=== PATIENT | male | born 2005 | race Caucasian/White ===

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

== ENCOUNTER 2023-01-20 15:25 | Outpatient (CLI) | payer OTHER, MEDICAID, SELFPAY | END 2023-01-20 15:26 | disposition home or self-care (01) | LOC: AMB 01-28 09:35 | PROVIDERS: PCP Family Medicine; Visit Provider Emergency Medicine Emergency Medical Services | DX: H93.13 Tinnitus, bilateral (principal) | CPT/HCPCS: A0425; A0427 ==

== ENCOUNTER 2023-01-20 15:50 | Emergency (ER) | payer OTHER, MEDICAID, SELFPAY ==
[2023-01-20 15:54] VITALS: BP 125/83; PULSE 89; RESP 16; TEMP 36.6; O2SAT 96; BMI 20.4
[2023-01-20 16:00] VITALS: BP 127/88; PULSE 86; O2SAT 97
[2023-01-20 16:15] VITALS: BP 129/88; PULSE 78; O2SAT 97
--- NOTE | 2023-01-20 16:20 | ED.GENADULT ---
HPI - General Adult General Chief complaint: Unspecified Complaint, Adult Stated complaint: Heat exposure Time Seen by Provider: 01/20/23 15:51 History of Present Illness HPI narrative: This 17-year-old male comes in with his mother reporting an episode of lightheadedness with some tinnitus and muscle cramping. He was out in extremely hot day with high humidity and was on roller blades for rather short time. He states that he typically goes out to exercise this way. Today he began to feel these symptoms and comes in by ambulance. An IV has been established and he did receive a half a L of normal saline. He arrives here with normal vital signs and states that he is feeling better. Prior to this he has been in good health. He does not smoke or vape. He does state that he has a chronic cough and is taking Zyrtec. Related Data Previous Rx's Medication Instructions Recorded albuterol sulfate 90 mcg/actuation 2 puff inhalation Q6H PRN 01/03/23 aerosol inhaler shortness of breath or wheezing #8.5 grams cetirizine 10 mg tablet (Zyrtec) 10 mg PO QDAY PRN allergy symptoms 01/03/23 #90 tabs Allergies Allergy/AdvReac Type Severity Reaction Status Date / Time azithromycin Allergy Intermediate Chest Pain Verified 01/20/23 16:00 trazodone Allergy Unknown penile Verified 01/20/23 16:00 burning Erythromycin Allergy Intermediate Hives Uncoded 01/03/23 15:47 Review of Systems Status of ROS: Reports: 10 or more systems reviewed and unremarkable except as noted in History and below Narrative: Constitutional: No fevers, no weight gain or loss. Eyes: No discharge. No vision changes. HENT: No congestion, no sore throat, no ear pain. Cardiovascular: No chest pain, no palpitations. Respiratory: No shortness of breath, no wheezes, no cough. Gastrointestinal: No abdominal pain, no vomiting, no diarrhea. Genitourinary: No dysuria, no hematuria. Musculoskeletal: Normal range of motion. Skin: No rashes, no pruritis. Neurological: No dizziness, weakness, sensory change, speech change. Endo/Heme/Allergies: No bruising or bleeding. No polydipsia. Pysch: no suicidality, no anxiety, no insomnia. All other systems reviewed and are negative. PFSH PFSH Medical History Back pain Heat exhaustion Premature infant of unknown weight (12/21/12) Surgical History History of appendectomy Social History Smoking Status: Never smoker Do you use any of these nicotine containing products: None Second hand tobacco smoke exposure: No How often do you have a drink containing alcohol: never How often do you have six or more drinks on one occasion: Never AUDIT-C Alcohol total score: 0 Non-prescribed substance use: denies use Little interest or pleasure in doing things: not at all Feeling down, depressed, or hopeless: not at all Exam Narrative: Exam Narrative: Constitutional: Well-developed, well-nourished, no acute distress. HEENT: Normocephalic, atraumatic. Neck: Normal range of motion. Nontender. Supple. Heart: Regular. No murmurs. Normal rate. Intact distal pulses. Lungs: Clear to auscultation. No chest discomfort. No wheezes, rhonchi, or rales. Abdomen: Normal bowel sounds. Nontender. No rebound tenderness. Genitalia: Deferred. Back: No midline tenderness. Normal range of motion. Extremities: Normal range of motion. No injury. Skin: Intact. No rash. Warm. No erythema or pallor. Neurologic: No altered sensation. No weakness. Alert and oriented. Psychiatric: No suicidality. No anxiety or depression. No insomnia. Nursing notes and vitals signs are reviewed. Const: Vital Signs, click to edit/add: Vital Signs - 24 hr 01/20/23 15:54 01/20/23 16:00 01/20/23 16:15 Temperature 97.8 F Pulse Rate [Left P ulse Oximeter] 89 86 78 Respiratory Rate 16 Blood Pressure [Ri ght Upper Arm] 125/83 127/88 129/88 Pulse Oximetry 96 97 97 Oxygen Delivery Me thod Room Air 01/20/23 17:00 Temperature Pulse Rate [Left P ulse Oximeter] 82 Respiratory Rate Blood Pressure [Ri ght Upper Arm] 132/82 Pulse Oximetry 95 Oxygen Delivery Me thod Course Vital Signs Vital signs: Initial Vital Signs Temperature 97.8 F 01/20/23 15:54 Temperature Source Temporal Artery Scan 01/20/23 15:54 Pulse Rate 89 01/20/23 15:54 Respiratory Rate 16 01/20/23 15:54 Blood Pressure 125/83 01/20/23 15:54 Blood Pressure Mean 97 01/20/23 15:54 Blood Pressure Position Semi-Fowlers 01/20/23 15:54 Pulse Oximetry 96 01/20/23 15:54 Oxygen Delivery Method Room Air 01/20/23 15:54 Vital Signs Temperature 97.8 F 01/20/23 15:54 Pulse Rate 89 01/20/23 15:54 Respiratory Rate 16 01/20/23 15:54 Blood Pressure 125/83 01/20/23 15:54 Pulse Oximetry 96 01/20/23 15:54 Oxygen Delivery Method Room Air 01/20/23 15:54 Temperature 97.8 F 01/20/23 15:54 Pulse Rate 82 01/20/23 17:00 Respiratory Rate 16 01/20/23 15:54 Blood Pressure 132/82 01/20/23 17:00 Pulse Oximetry 95 01/20/23 17:00 Oxygen Delivery Method Room Air 01/20/23 15:54 Medical Decision Making MDM Narrative Medical decision making narrative: This patient comes in by ambulance because of getting overheated when outside rollerblading in a very hot and humid day. By the time he arrives here his vital signs are back to normal and he states that he is feeling normal. He did receive 500 mL of normal saline prior to arrival and another L of normal saline here. Lab results returned with normal findings. His vital signs have remained normal also. At the time of discharge the patient's mother states that he has some mental health issues and has been calling 911 multiple times. She states that he has called about 20 5 times and the police are now stating that any further calls that are frivolous will incur a charge to his mother who has custody of him. The patient is seeing a therapist and has seen a psychiatrist. He is not currently on any psychotropic medications. He denies any intent to harm himself or others. I did discuss the role of a mental health assessment and in a process of shared decision making this was declined. We did discuss strategies in options going forward and I stated that the emergency department is always open and can review these plans if things change. Lab Data Labs: Lab Results 01/20/23 Range/Units 16:30 WBC 6.39 (4.50-11.00) K/uL RBC 4.92 (4.30-5.90) m/uL Hgb 14.8 (13.5-17.5) gm/dL Hct 42.6 (37.0-53.0) % MCV 87 (80-100) fL MCH 30 (26-34) pg MCHC 35 (32-36) gm/dL RDW Coeff of Mimi 12.5 (11.5-15.5) % Plt Count 238 (140-440) K/uL Neut % (Auto) 61.0 (42.0-72.0) % Lymph % (Auto) 26.9 (20-44) % [place] % (Auto) 8.0 (0.0-11.0) % Eos % (Auto) 3.0 (0.0-7.0) % Baso % (Auto) 1.1 (0.0-3.0) % Neut # (Auto) 3.90 (1.7-7.0) K/uL Lymph # (Auto) 1.72 (0.90-2.90) K/uL [place] # (Auto) 0.50 (0.00-0.90) K/UL Eos # (Auto) 0.19 (0.00-0.50) K/uL Baso # (Auto) 0.07 (0.00-0.30) K/uL Abs Immat Gran (auto) 0.00 (0.00-0.30) K/uL Imm/Tot Granulo (auto) 0.0 % Sodium 136 (135-149) mmol/L Potassium 3.9 (3.6-5.1) mmol/L Chloride 104 (96-114) mmol/L Carbon Dioxide 25 (20-32) mmol/L BUN 15 (5-24) mg/dL Creatinine 1.0 (0.6-1.2) mg/dL Estimated Creat Clear 99.10 Estimated GFR 111 ml/min Glucose 89 (60-115) mg/dL Calcium 8.7 (8.7-10.8) mg/dL Discharge Plan Discharge Clinical Impression: Fluid volume depletion Patient Disposition: Home w/ Parent or Adult Condition: Improved Additional Instructions: Continue current plans. Take plenty of food and drink. Follow-up with therapist and MD as needed. Return if worsening. Prescriptions: No Action albuterol sulfate 90 mcg/actuation HFA aerosol inhaler 2 puff inhalation Q6H PRN (Reason: shortness of breath or wheezing) Qty: 8.5 2RF cetirizine [Zyrtec] 10 mg tablet 10 mg PO QDAY PRN (Reason: allergy symptoms) Qty: 90 1RF Follow Up/Referrals: Robin Pagan MD [Primary Care Provider] - Stand Alone Forms: [employer] Info Instructions
[2023-01-20] MEDS: 0.9 % SODIUM CHLORIDE 1000 ml 1,000 ML IV (16:27)
[2023-01-20 16:39] LABS: Basophils Absolute Auto 0.07 K/uL (0.00-0.30); Basophils Percent Auto 1.1 % (0.0-3.0); Eosinophils Absolute Auto 0.19 K/uL (0.00-0.50); Hematocrit 42.6 % (37.0-53.0); Hemoglobin* 14.8 gm/dL (13.5-17.5); Lymphocytes Absolute Auto 1.72 K/uL (0.90-2.90); Lymphocytes Percent Auto 26.9 % (20-44); Mean Corpuscular HGB Conc 35 gm/dL (32-36); Mean Corpuscular Hemoglobin 30 pg (26-34); Mean Corpuscular Volume 87 fL (80-100); Platelet Count* 238 K/uL (140-440); RDW Coefficient of Variation % 12.5 % (11.5-15.5); Red Blood Count 4.92 m/uL (4.30-5.90); White Blood Count* 6.39 K/uL (4.50-11.00)
[2023-01-20 16:48] LABS: Slide Review Reflex No
[2023-01-20 16:51] LABS: Chloride* 104 mmol/L (96-114); Potassium* 3.9 mmol/L (3.6-5.1); Sodium* 136 mmol/L (135-149)
[2023-01-20 16:54] LABS: Blood Urea Nitrogen* 15 mg/dL (5-24); Calcium* 8.7 mg/dL (8.7-10.8); Carbon Dioxide* 25 mmol/L (20-32); Estimated Glomerular Filt Rate 111 ml/min; Glucose* 89 mg/dL (60-115)
[2023-01-20 17:00] VITALS: BP 132/82; PULSE 82; O2SAT 95
--- NOTE | 2023-01-20 17:33 | ED.NURSE ---
did eat veggie burger and mac and cheese. awaiting ems at ~1800.
== END 2023-01-20 17:44 | disposition home or self-care (01) ==
PROVIDERS: Emergency Provider Emergency Medicine Emergency Medical Services; PCP Family Medicine
DX: E86.9 Volume depletion, unspecified (principal); X30.XXXA Exposure to excessive natural heat, initial encounter; Y93.51 Activity, roller skating (inline) and skateboarding
CPT/HCPCS: 36415; 80048; 85025; 99283; 99284; J7030

== ENCOUNTER 2024-02-28 12:58 | Outpatient (CLI) | payer MEDICAID, SELFPAY ==
--- OUTSIDE RECORDS SUMMARY | 2024-02-28 13:01 | XMS_ITS | Clinical Summary ---
Author Organization [facility] Address [place], [place] [facility] Care Team Providers Care Bar Useful Or Busser Name Role Phone Pcp, No Primary Care Provider Unavailabl e Allergies Active Allergy Reactions Criticality Noted Date Comments Erythromycin 03/31/2007 Medications Medication Sig Dispensed Refills Start Date End Date Status clonazePAM (KLONOPIN) 0.5 mg tabletIndications:Gen eralized anxiety disorder,Autism spectrum disorder Take 1.5 Tablets (0.75 mg) by mouth at bedtime. 45 Tablet 08/01/2023 Active prazosin (MINIPRESS) 1 mg capsuleIndications:Ni tammy Take 1 Capsule (1 mg) by mouth at bedtime. 30 Capsule 08/01/2023 Active docusate (COLACE) 100 mg capsuleIndications:Co nstipation, unspecified constipation type Take 1 Capsule (100 mg) by mouth 2 times daily if needed for Constipation. 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 Generalized anxiety disorder 06/27/2023 Allergic rhinitis, cause unspecified 03/20/2010 Immunizations Name Administration Dates Next Due DTaP 11/12/2004 [id number] (Pediarix) 2003,2003,1 07/02/2002 DTaP-IPV (Kinrix) 02/10/2009 HIB PRP-OMP (PedvaxHIB) 11/12/2004,2003, HPV 9 (Gardasil 9) 02/11/2017,02/11/2016 Hep A, Ped/adol, 3 Dose 03/19/2011 Hepatitis A (Peds) 02/10/2009,03/31/2007 MENINGOCOCCAL VACCINE (MENQU ADFI 0.5ML) 2YO+ POLYSACCHARIDE PF 01/07/2022 MMR 02/10/2009,03/03/2004 Meningococcal B 02/25/2023 Meningococcal Vaccine (Menveo) 02/11/2016 Pneumococcal conj 7-Valent (Prevnar 7) 0 11/12/2004,2003,2003,05/02 Tdap 02/11/2016 Varicella Vaccine 02/10/2009,03/03/2004 Family History Medical History Relation Name Comments Heart Disease Maternal Grandmother Hyperlipidemia Maternal Grandmother Heart Disease Paternal Grandfather Hyperlipidemia Paternal Grandfather Asthma No Family History Cancer-colon No Family History Diabetes No Family History Relation Name Status Comments Maternal Grandmother Paternal Grandfather Social History Tobacco Use Types Packs/Day Years Used Date Smoking Tobacco: Never Smokeless Tobacco: Never Tobacco Cessation:Counseling Given: Yes Alcohol Use Standard Drinks/Week Comments No 0 (1 standard drink = 0.6 oz pur e alcohol) PHQ-2 Answer Date Recorded PHQ-2 TOTAL SCORE 2 08/15/2023 Social Connections Answer Date Recorded Frequency of Communication with Friends and Fami ly 4 06/26/2023 Alcohol Use Answer Date Recorded How often do you have a drink containing alcohol ? 0 06/28/2023 How many drinks containing a lcohol do you have on a typical day when you are drinking? 0 06/28/2023 How often do you have five or more drinks on one occasion? 0 06/28/2023 Financial Resource Strain Answer Date R ecorded Difficulty of Paying Living Expenses 2 06/26/2023 Difficulty of Paying Living Expenses 1 06/26/2023 Food Insecurity Answer Date Recorded Worried About Running Out of Food in the Last Ye ar 1 06/26/2023 Transportation Needs Answer Date Record ed Lack of Transportation (Medical) 2 06/26/2023 Housing Stability Answer Date Recorded Unable to Pay for Housing in the Last Year 2 06/26/2023 Sex and Gender Information Value Date Recorded Sex Assigned at Not on file Gender Identity Not on file Sexual Orientation Not on file Obstetrics History Last Filed Vital Signs Vital Sign Reading Time Taken Comments Blood Pressure 111/63 08/03/2023 6:09 AM FRIT MIXER AND BURNER Pulse 93 08/03/2023 6:09 AM [employer] BURNER Temperature 37 ??C (98.6 ??F) 08/03/2023 6:09 AM FRIT M[employer]ER AND BURNER Respiratory Rate 18 08/03/2023 6:09 AM FRIT M[employer]ER AND BURNER Oxygen Saturation 96% 08/03/2023 6:09 AM [employer]ER AND BURNER Inhaled Oxygen Concentration - - Weight 57.3 kg (126 lb 6.4 oz) 08/01/2023 6:26 A M [employer] M[employer] BURNER Height 170.2 cm (5' 7) 06/27/2023 6:00 AM FRIT M[employer]ER [employer] BURNER Body Mass Index 19.41 06/27/2023 6:00 AM [employer] BURNER Plan of Treatment Health Maintenance Due Date Last Done Comments Well Child Check for age 3-20 03/20/2011 03/20/2010, 02/10/2009, 03/31/2007 HIV for age 15-65 2018 BMI (ht and wt on same day) for age 18+ 2021 Hepatitis C screening for age 18-79 2021 COVID-19 vaccine series ( season) 2024 Influenza for age 9-49 02/26/2024 Depression screening for age 12+ 08/16/2024 08/16/2023, 08/15/2023, 06/24/2023 Tetanus booster 02/10/2026 02/11/2016 Pneumococcal series for age 6-64 Aged Out 11/12/2004, 2003, 2003, Additional history exists No longer eligible based on patient's age to complete this topic Tdap Completed 02/11/2016 HPV series for age 9-26 Completed 02/11/2017, 02/10 Meningococcal series for age 11-21 Completed 01/07/2022, 02/11/2016 Advance Directives * Full Code (Latest Code Status on File) Date Activated Date Inactivated Comments 06/27/2023 9:51 AM 08/03/2023 1:14 PM Question Answer Comments Code Status Discussion: Reviewed Preferences * Full Code Date Activated Date Inactivated Comments 06/26/2023 11:40 PM 06/27/2023 9:51 AM Question Answer Comments Code Status Discussion: Unable to Assess Preferences, Provider to review later Care Teams Bar Useful Or Busser Relationship Specialty Start Date End Date Pcp, No . PCP - General 11/21/18
--- OUTSIDE RECORDS SUMMARY | 2024-02-28 13:01 | XMS_ITS | Clinical Summary ---
Author Organization [facility] Address [address] [place] [address] Care Team Providers Care Pump Attendant Name Role Phone Found, No Pcp MD Primary Care Provider Unavailab le Source Comments You are receiving this document as you are listed as the primary care provider,follow-up provider, or the patient has been referred to you for consultation.This is in compliance with the Medicare andMedicaid EHR Incentive Program,which states Providers who transition their patient to another setting of careor provider of care or refers their patient to another provider of care shouldprovide summary care record for each transition of care or referral. [facility] Allergies Active Allergy Reactions Criticality Noted Date Comments Azithromycin Palpitations 09/02/2023 Social History Tobacco Use Types Packs/Day Years Used Date Smoking Tobacco: Never Assessed Sex and Gender Information Value Date Recorded Sex Assigned at Not on file Gender Identity Not on file Sexual Orientation Not on file Last Filed Vital Signs Vital Sign Reading Time Taken Comments Blood Pressure 129/82 09/02/2023 7:35 PM QUARTZ CUTTER Pulse 84 09/02/2023 7:35 PM QUARTZ CUTTER Temperature 36.9 ??C (98.4 ??F) 09/02/2023 7:35 PM CS T Respiratory Rate 20 09/02/2023 7:35 PM QUARTZ CUTTER Oxygen Saturation 97% 09/02/2023 7:35 PM QUARTZ CUTTER Inhaled Oxygen Concentration - - Weight 57.2 kg (126 lb) 09/02/2023 7:35 PM QUARTZ CUTTER Height 170.2 cm (5' 7) 09/02/2023 7:35 PM QUARTZ CUTTER Body Mass Index 19.73 09/02/2023 7:35 PM QUARTZ CUTTER Plan of Treatment Health Maintenance Due Date Last Done Comments Hep C Screening (Preventive Services) 2003 MTM Covered 2003 HIV Screening (Preventive Services) 2019 Adult Preventive Visit 2021 HepB (1) 2022 COVID-19 Vaccine ( season) 2024 Influenza (#1) 2024 DTaP/Tdap/Td (7 - Tdap) 02/10/2026 02/11/20 16, 02/10/2009, 11/12/2004, Additional history exists Zoster/Shingles (1 of 2) 2053 Hib Completed 11/12/2004, 06/27, 2003 Pneumococcal Aged Out 11/12/2004, 08/25, 2003, Additional history exists No longer eligible based on patient's age to complete this topic HepA Completed 02/10/2009, 03/31/2007 IPV (Polio) Completed 02/10/2009, 08/25, 2003, Additional history exists HPV Vaccine Completed 02/11/2017, 02/11/2016 MCV4 Completed 01/07/2022, 02/11/2016 Care Teams Pump Attendant Relationship Specialty Start Date End Date Found, No Pcp, [address] [place] [address] PCP - General 09/02/23
--- OUTSIDE RECORDS SUMMARY | 2024-02-28 13:02 | XMS_ITS | Encounter Summary ---
Author Organization [facility] Address [address] [place] [address] Care Team Providers Care Cnc Machinist Name Role Phone Robin Pagan MD Primary Care Provider [phone] Reason for Visit * Reason Onset Date Comments MH/CD Inpatient 03/21/2022 Encounter Details Date Type Department Care Team ([facility] Contact Info) Description 03/21/2022 Telephone [facility] Intake [address] [place] [id number] Generic, Behavioral Intake, MH/CD Inpatient Social History Tobacco Use Types Packs/Day Years Used Date Smoking Tobacco: Never Assessed Sex and Gender Information Value Date Recorded Sex Assigned at Not on file Gender Identity Not on file Sexual Orientation Not on file COVID-19 Exposure Response Date Recorded In the last 10 days, have yo u been in contact with someone who was confirmed or suspected to have Coronavirus/COVID-19? No / Unsure 03/19/2022 9:55 PM CDT documented as of this encounter Miscellaneous Notes * Telephone Encounter - Jasmin Cordova - 03/23/2022 5:40 AM CDT 0540 Bed [facility]: [facility] beds available [facility]-No beds available [place]-No beds available [facility]-No beds available [facility]-No beds available [facility] [place]-No beds available [facility]-No beds available [facility] [place]-No beds available [facility]-No beds available. Low acuity only. Mixed unit adol/adult/luc [facility]-No beds available [facility] beds available [facility]-No beds available [place]-No beds available [facility] beds available [facility] [place]-No beds available. Must be on a 72 HH. No intake after 10 PM. [facility] [place]-[facility] beds [facility] [place] [place]-Voluntary/KNIK only. No hx violence or sexual assault. [facility] [place]-No beds available [facility] [place]-No beds available [facility]-No recent hx violence/aggression. Must be able to program in groups. [facility]-Low acuity only. [facility]-No beds available. No recent violence or aggression. [facility] [place]-No beds available [facility] [place]-No beds available [phone] No answer. Clinical was faxed on 03/22. No updates from [facility] at this time. -No beds available Remains on wait list. * Telephone Encounter - Hollie Hughes - 03/22/2022 1:20 AM CDT R: Bed search update @ [facility]: @ cap per website [place]: @ cap per website [facility]: @ cap per website [facility]: @ cap per website [facility]: @ cap per website [facility]: @ cap per website [place]: @ cap per website [facility]: @ cap per website [facility]: @ cap per website [facility]: @ cap per website [facility]: @ cap per website [facility]: Posting 1 bed. Per Shannon @ 00:27 they are at capacity [facility] [place]: @ cap per website [facility]: @ cap per website [place] [facility]: @ cap per website [facility]: Posting 2 beds. Per Rivas @ 00:58, [facility] is at capacity [facility] [place]: @ cap per website [facility]: Pt was declined 03/21 d/t acuity [facility] [place]: @ cap per website [facility]: @ cap per website [facility]: Posting 2 beds. Covid neg. Voluntary only. Combined adolescent and adult unit. No aggressive or violent behavior. No registered sex offenders. Meets exclusionary d/t being on a hold [facility]: Posting 8 beds. Per call @ 23:39 they are reviewing other referral - call back later Health: @ cap per website Pt remains on work list until appropriate placement is available * Telephone Encounter - Hollie Hughes - 03/21/2022 1:51 AM CDT R: Bed search update @ 02:12: [facility]: @ cap per website [place]: @ cap per website [facility]: @ cap per website [facility]: @ cap per website [facility]: @ cap per website [facility]: @ cap per website [place]: @ cap website [facility]: @ cap per website [facility]: Posing 3 beds. Mixed unit / Low acuity only. Per call @ 00:04, they are reviewing beyond their cap and recommends calling back later this morning [facility]: Posting 1 bed. Per Stephany @ 01:16, they are full and won???t have an update until 10AM [facility]: @ cap per website [facility]: Posting 1 bed. they are full and won???t have an update until 10AM [facility]: @ cap per website [facility]: @ cap per website [facility]: @ cap per website [facility]: @ cap per website [facility] [place]: @ cap per website [facility]: Posting 8 beds. LOW acuity only. 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 No aggressive or violent behavior or recent HX in the last 2 yrs. MH must be primary. Enrrique @ 02:16 is able to review. Faxed clinical @ 02:38 Awaiting callback from [facility] Enrrique from [place] called @ 03:15 and pt was declined d/t acuity Continuing bed search @ 03:18: [facility]: @ cap per website [facility]: @ cap per website [facility]: Posting 2 beds. Covid neg. Vol only. Combined adolescent and adult unit. Noaggressive or violent behavior. No registered sex offenders. Meets exclusionary criteria d/t 72 [facility]: Posting 14 beds. Per Gisselle @ 00:54, they are reviewing a few other referrals and only have low acuity beds available Health: @ cap per website Pt remains on work list until appropriate placement is available documented in this encounter Plan of Treatment Not on file documented as of this encounter Visit Diagnoses Not on filedocumented in this encounter Care Teams Cnc Machinist Relationship Specialty Start Date End Date Robin Pagan MD PCP - General Family Medicine 03/20/22 documented as of this encounter
--- OUTSIDE RECORDS SUMMARY | 2024-02-28 13:02 | XMS_ITS | Referral Summary ---
Author Organization [facility] Address [address] [place] [address] Care Team Providers Care Junior Account Executive Name Role Phone Unavailable Primary Care Provider Unavailabl e Source Comments Patient records contain information from all sites at [facility]. For routine questions regarding patient records, call [phone] during business hours, M-F 8:00 AM - 5:00 PM Central Time. Record requests for emergency care only can be directed to [phone] at any time.[facility] Allergies No known active allergies Medications Medication Sig Dispensed Refills Start Date End Date Status QUEtiapine (SEROquel) 100 mg tablet Take 1 tablet (100 mg total) by mouth at bedtime. 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 04/07/2022 Resolved Problems Problem Noted Date Diagnosed Date Resolved Date Suicide Ideation 04/07/2022 04/13/2022 Social History Tobacco Use Types Packs/Day Years Used Date Smoking Tobacco: Never Smokeless Tobacco: Never Tobacco Cessation:Counseling Given: Not Answered Alcohol Use Standard Drinks/Week Comments Never 0 (1 standard drink = 0.6 oz pur e alcohol) Nutrition Answer Date Recorded Nutrition: EVOO Fat Source Unknown 04/06 Nutrition: Servings of Fruits/Vegetables per Day Not on file 04/06/2022 Dental Answer Date Recorded Dental: Regular Dentist Unknown 04/06/20 Sex and Gender Information Value Date Recorded Sex Assigned at Not on file Gender Identity Not on file Sexual Orientation Not on file Last Filed Vital Signs Vital Sign Reading Time Taken Comments Blood Pressure 124/90 04/13/2022 7:18 AM CDT Pulse 92 04/13/2022 7:18 AM CDT Temperature 37.2 ??C (99 ??F) 04/13/2022 7:18 AM CDT Respiratory Rate 16 04/13/2022 7:18 AM CDT Oxygen Saturation 100% 04/13/2022 7:18 AM CDT Inhaled Oxygen Concentration - - Weight 55.6 kg (122 lb 9.2 oz) 04/07/2022 1:50 P M CDT Height 170.2 cm (5' 7) 04/07/2022 1:50 PM CDT Body Mass Index 19.2 04/07/2022 1:50 PM CDT Plan of Treatment Not on file Advance Directives For more information, please contact: [phone] * Full Code (Latest Code Status on File) Date Activated Date Inactivated Comments 04/07/2022 2:40 PM 04/14/2022 1:12 AM Question Answer Comments Full Code: Not Discussed Due to: Not medically appropriate
--- OUTSIDE RECORDS SUMMARY | 2024-02-28 13:02 | XMS_ITS | Clinical Summary ---
Author Organization [facility] Address [address] [place] [address] Care Team Providers Care General Science Teacher Name Role Phone Unavailable Primary Care Provider Unavailabl e Source Comments Patient records contain information from all sites at [facility]. For routine questions regarding patient records, call [phone] during business hours, M-F 8:00 AM - 5:00 PM Central Time. Record requests for emergency care only can be directed to [phone] at any time.[facility] Allergies No known active allergies Medications Medication [...] Date Resolved Date Suicide Ideation 04/07/2022 04/13/2022 Family History Medical History Relation Name Comments Fibromyalgia Mother Relation Name Status Comments Brother Alive Father Alive Mother Alive Social History Tobacco Use Types Packs/Day Years [...] 04/07/2022 1:50 PM CDT Plan of Treatment Health Maintenance Due Date Last Done Comments HIV Screening 2003 Hepatitis C Screening 2003 TB Screening during Well Child Visit 2003 1 week Well Child Check-Up 2003 1 month Well Child Check-Up 2003 2 month Well Child Check-Up 2003 4 month Well Child Check-Up 2003 6 month Well Child Check-Up 2003 9 month Well Child Check-Up 2003 12 month Well Child Check-Up 01/30/2004 15 month Well Child Check-Up 05/01/2004 18 month Well Child Check-Up 08/01/2004 2 year Well Child Check-Up 01/29/2005 30 month Well Child Check-Up 08/01/2005 3 year Well Child Check-Up 01/29/2006 Well Child Check-Up Completed in Past Year 01/29/2006 4 year Well Child Check-Up 01/29/2007 5 year Well Child Check-Up 01/30/2008 6 year Well Child Check-Up 01/29/2009 7 year Well Child Check-Up 01/29/2010 8 year Well Child Check-Up 01/29/2011 9 year Well Child Check-Up 01/30/2012 10 year Well Child Check-Up 01/29/2013 11 year Well Child Check-Up 01/29/2014 12 year Well Child Check-Up 01/29/2015 13 year Well Child Check-Up 01/30/2016 14 year Well Child Check-Up 01/29/2017 Vision Screening during Well Child Visit 2017 15 year Well Child Check-Up 01/29/2018 16 year Well Child Check-Up 01/29/2019 15 year Well Child Check-Up 01/30/2020 18 year Well Child Check-Up 01/29/2021 19 year Well Child Check-Up 01/29/2022 20 year Well Child Check-Up 01/29/2023 Depression Screening (Annual PHQ-2) 06/27/2023 19 year Well Child Check-Up 01/30/2024 Well Child Check-Up (WCC) 01/30/2024 COVID-19 Vaccine ( season) 2024 Influenza Vaccine (#1) 2024 Glucose Test for Med Monitoring 07/06/2024 07/06/2023, 06/26/2023, 03/22/2022 DTaP,Tdap,and Td Vaccines (7 - Td or Tdap) 02/10/2026 02/11/2016, 02/10/2009, 11/12/2004, Additional history exists Hepatitis B Vaccines Completed 2003, 2003, 2003 Pneumococcal vaccine (0-64 years) Aged Out 11/12/2004, 2003, 2003, Additional history exists No longer eligible based on patient's age to complete this topic HPV Vaccines Completed 02/11/2017, 02/11/2016 Meningococcal Vaccine Completed 01/07/2022 , 02/11/2016, 02/11/2016 Advance Directives For more information, please contact: [phone] * Full Code (Latest Code Status on File) Date Activated Date Inactivated Comments 04/07/2022 2:40 PM 04/14/2022 1:12 AM Question Answer Comments Full Code: Not Discussed Due to: Not medically appropriate
--- OUTSIDE RECORDS SUMMARY | 2024-02-28 13:02 | XMS_ITS | Clinical Summary ---
Author Organization [place] Address [address] [facility] [address] [place] [address] Care Team Providers Care Motor Analyst Name Role Phone Robin Pagan MD Primary Care Provider [phone] Allergies No known active allergies Medications Medication Sig Dispensed Refills Start Date End Date Status cetirizine (ZYRTEC) 10 MG tablet Take 10 mg by mouth as needed for allergies Active fluticasone (FLONASE) 50 MCG/ACT nasal spray [place] 1 spray into both nostrils as needed for rhinitis or allergies Active Acetaminophen (TYLENOL PO) Take 325 mg by mouth as needed for mild pain or fever Active QUETIAPINE FUMARATE PO Take 6.25 mg by mouth daily Active Social History Tobacco Use Types Packs/Day Years Used Date Smoking Tobacco: Never Assessed Adolescent Education Answer Date Record ed Getting School Help Needed Not on file 04/12 Sex and Gender Information Value Date Recorded Sex Assigned at Not on file Gender Identity Not on file Sexual Orientation Not on file Last Filed Vital Signs Vital Sign Reading Time Taken Comments Blood Pressure 134/95 03/23/2022 8:18 AM CDT Pulse 78 03/23/2022 8:18 AM CDT Temperature 37.3 ??C (99.1 ??F) 03/22/2022 2:15 AM CD T Respiratory Rate 18 03/23/2022 8:18 AM CDT [...] 2003 ANNUAL REVIEW OF HM ORDERS 2003 YEARLY PREVENTIVE VISIT 2003 DTAP/TDAP/TD IMMUNIZATION (1 - Tdap) 2010 HIV SCREENING 2018 HPV IMMUNIZATION (1 - Male 3 -dose series) 2018 HEPATITIS C SCREENING 2021 HEPATITIS B IMMUNIZATION (1 of 3 - 19+ 3-dose series) 2022 PHQ-2 (once per calendar year) 2023 COVID-19 Vaccine (1 - 2022-2 4 season) 2024 INFLUENZA VACCINE (#1) 2024 MENINGITIS IMMUNIZATION Aged Out No l onger eligible based on patient's age to complete this topic Pneumococcal Vaccine: Pediat rics (0 to 5 Years) and At-Risk Patients (6 to 64 Years) Aged Out No longer eligi ble based on patient's age to complete this topic RSV MONOCLONAL ANTIBODY Aged Out No l onger eligible based on patient's age to complete this topic Care Teams Motor Analyst Relationship Specialty Start Date End Date Robin Pagan MD PCP - General Family Medicine 03/20/22
--- OUTSIDE RECORDS SUMMARY | 2024-02-28 13:02 | XMS_ITS | Referral Summary ---
Author Organization [place] Address [address] [facility] [place] [place] [address] Care Team Providers Care Injection Wax Molder Name Role Phone Robin Pagan MD Primary Care Provider [phone] Allergies No known active allergies Medications Medication Sig Dispensed Refills Start Date End Date Status cetirizine (ZYRTEC) 10 MG tablet Take 10 mg by mouth as needed for allergies Active fluticasone (FLONASE) 50 MCG/ACT nasal spray [place] 1 spray into both nostrils as needed [...] 03/20/2022 1:25 AM CDT Plan of Treatment Not on file Care Teams Injection Wax Molder Relationship Specialty Start Date End Date Robin Pagan MD PCP - General Family Medicine 03/20/22
--- OUTSIDE RECORDS SUMMARY | 2024-02-28 13:02 | XMS_ITS ---
Author Organization [facility] Address [address] [place] [address] Care Team Providers Care Book Cutter Name Role Phone Unavailable Unavailable Unavailable Surgery Details Not on file Complications Check Surgery Details section. Procedure Estimated Blood Loss Check Surgery Details section. Procedure Findings Check Surgery Details section. Procedure Specimens Taken Check Surgery Details section.
== END 2024-02-28 12:59 | disposition home or self-care (01) ==
PROVIDERS: PCP Family Medicine; Visit Provider Family Medicine
DX: Z13.220 Encounter for screening for lipoid disorders (principal); Z13.228 Encounter for screening for other metabolic disorders; Z11.1 Encounter for screening for respiratory tuberculosis
CPT/HCPCS: 80048; 80061; 86480

== ENCOUNTER 2024-10-12 11:29 | Outpatient (CLI) | payer MEDICAID, SELFPAY | END 2024-10-12 11:30 | disposition home or self-care (01) | LOC: LKVREF 11:31 | PROVIDERS: PCP Family Medicine; Visit Provider Family Medicine | DX: R10.9 Unspecified abdominal pain (principal); R53.83 Other fatigue; F21 Schizotypal disorder | CPT/HCPCS: 80053; 84443 ==